=== PATIENT | male | born 2000 | race Caucasian/White ===

== ENCOUNTER → 2020-10-05 | Outpatient (CLI) | payer OTHER ==
--- NOTE | 2020-10-05 16:48 | XR ---
EXAMINATION TYPE: XR hand complete LT DATE OF EXAM: 10/05/2020 COMPARISON: NONE HISTORY: Crush injury of the thumb TECHNIQUE: 3 views FINDINGS: Metacarpals appear intact. I see no fracture nor dislocation. The thumb appears intact. The re is no evidence of a foreign body. IMPRESSION: Normal left hand exam.
== END | disposition home or self-care (01) ==
LOC: RADXRMAIN 16:05
PROVIDERS: ATTEND Emergency Medicine
DX: S60.222A Contusion of left hand, initial encounter (principal)

== ENCOUNTER → 2020-10-12 | Outpatient (CLI) | payer OTHER ==
--- NOTE | 2020-10-12 11:37 | XR ---
EXAMINATION TYPE: XR finger LT DATE OF EXAM: 10/12/2020 COMPARISON: 3 views left hand one week ago HISTORY: Smashing injury with pain TECHNIQUE: 3 views left thumb FINDINGS: No acute displaced fracture is evident. Joint space is maintained. Overlying soft tissue un remarkable. IMPRESSION: As above. No significant change from prior.
== END ==
LOC: RADXRMAIN 11:04
PROVIDERS: ATTEND Emergency Medicine
DX: S60.222D Contusion of left hand, subsequent encounter (principal)